=== PATIENT | female | born 1955 | race Caucasian/White ===

== ENCOUNTER 2016-09-06 12:32 | Observation (INO) | payer OTHER ==
[~2016-09-06] VITALS: Ht 162.6 cm; Wt 84.2 kg
[~2016-09-06 12:32] MED LIST: ADVIL,NUPRIN,M200 MG PO; ADVIL200 MG PO; AMRIX30 MG PO; ARTIFICIAL TEAR1510 RIGHT EYE; ASPIRIN325 MG PO; ATARAX,VISTARIL50 MG PO; BACLOFEN10 MG PO; BACLOFEN20 MG PO; BENTYL10 MG PO; BENTYL20 MG PO; BENZONATATE100 MG; BUPROPION XL300 MG PO; BUTALB-ACETAMI1 EAC2 PO; BUTALB-APAP-CA1 EACH PO; BUTALBITAL-APA1 EACH PO; BUTRANS1 EAC1 TD; CALTRATE 600 +1 EAC1 PO; CALTRATE 600+D1 EAC1 PO; CALTRATE 6001 TABLE1 PO; CALTRATE PLUS1 EACH PO; CEFDINIR300 MG PO; CENTRUM SILVER1 EAC3 PO; CENTRUM SILVER1 EAC4 PO; CHLORZOXAZONE500 MG PO; CITALOPRAM HBR20 MG PO; CLARITHROMYCIN500 MG; CLONAZEPAM0.5 MG PO; CRESTOR10 MG PO; CYCLOBENZAPRINE10 MG PO; CYMBALTA60 MG PO; DESYREL100 MG; DESYREL100 MG PO; DIAZEPAM2 MG PO; DICYCLOMINE HCL20 MG PO; DILAUDID2 MG PO; DOCUSATE SODIU100 MG PO; DURAGESIC25 MCG TD; ESOMEPRAZOLE MA40 MG PO; FENTANYL1 EAC1 TD; FENTANYL1 EAC5 TD; FEOSOL325 MG PO; FEOSOL45 MG PO; FIORICET 50-301 EACH PO; FIORICET,ESG1 TABLET PO; FIORINAL1 TABLET PO; FLEXERIL10 MG PO; HEPARIN SO5000 UNITS SC; HYDROCODON-ACE1 EAC7 PO; HYDROMORPHONE HC4 MG PO; HYDROXYZINE HCL50 MG PO; HYDROXYZINE PA100 MG PO; HYDROXYZINE PAM50 MG PO; IBUPROFEN200 M1 PO; IBUPROFEN800 MG PO; IMITREX25 MG PO; IMITREX6 MG/0.5 M SC; IMITREX6 MG/0.52 SC; IMITREX6 MG/0.53 SC; KADIAN10 MG PO; KEFLEX500 MG PO; KLONOPIN0.5 M1 PO; LEVOTHYROXINE100 MCG PO; LEVOTHYROXINE50 MCG; LEVOTHYROXINE75 MCG PO; LEXAPRO5 MG PO; LIDOCAINE700 MG TD; LIDODERM 5% P1 PATCH TD; LITE COAT ASPI325 M1 PO; LORAZEPAM2 MG PO; LOTRONEX PO; LOTRONEX0.5 MG; LOVENOX40 MG/0.4 SC; LYRICA100 MG PO; LYRICA150 MG PO; LYRICA200 MG PO; LYRICA75 MG PO; MEDROL DOSEPAK4 MG PO; MELATONIN5 M1 PO; MELOXICAM15 MG PO; MIRALAX17 GM PO; MIRALAX255 GM PO; MORPHINE SULFAT15 M1 PO; NAPROSYN500 MG PO; NEXIUM40 MG PO; NORCO 5/3251 TABLET PO; OMEGA 3 500 SO1 EACH PO; OMEGA-31000 M1 PO; ONE-A-DAY WOME1 EAC5 PO; OXYCODONE HCL5 MG PO; OXYCONTIN20 MG PO; PERCOCET 5/31 TABLET PO; POLYETHYLENE GL17 GM PO; POTASSIUM GLUCO2 MEQ PO; PREDNISONE20 MG PO; PRISTIQ50 MG PO; PROBIOTIC1 EAC1 PO; PROMETHAZINE HC25 M1 PO; QUETIAPINE FUM100 MG PO; QVAR 40 MCG IN7.3 GM; ROBITUSSIN AC,T10 ML PO; ROBITUSSIN100 MG/5 M PO; SAVELLA100 MG PO; SAVELLA50 MG PO; SENNA8.6 M1 PO; SEROQUEL100 MG PO; STOOL SOFTENER100 MG PO; SUCRALFATE1 GM PO; SULFACETAMIDE S15 ML RIGHT EYE; SUMATRIPTA6 MG/0.5 M; SUMATRIPTAN SUC50 MG PO; SYMBICORT60 INHALA1 IH; THERAGRAN1 TABLET PO; TOPAMAX100 MG PO; TOPIRAMATE100 MG PO; TOPROL XL100 MG PO; TRAZODONE HCL100 MG PO; TRAZODONE HCL50 MG PO; TUMS500 MG PO; TYLENOL EXTRA500 MG PO; VALIUM2 MG PO; VALIUM5 MG PO; VASCEPA1 GM PO; WELLBUTRIN XL150 MG PO; WELLBUTRIN XL300 MG PO; WELLBUTRIN75 MG PO; WOMEN'S ONE DA1 EACH PO; XIFAXAN550 MG PO; ZITHROMAX Z-PA250 MG PO; ZITHROMAX500 MG PO; ZOFRAN ODT4 MG PO; ZOFRAN4 MG PO
[2016-09-06 13:17] LABS: HEMATOCRIT 41.8 % (36.0-46.0); MCH 27.1 PG (29.0-34.0); MCHC 34.4 G/DL (30.0-36.0); MCV 78.7 FL (83-99); MEAN PLAT.VOLUME 9.9 uM^3 (9.5-12.4); PLATELET COUNT 245 K/uL (156-360); RBC DIS.WIDTH-CV 14.9 % (11.8-14.6); RBC DIS.WIDTH-SD 41.8 % (39-53); RED BLOOD COUNT 5.31 M/uL (3.80-5.20)
[2016-09-06 13:56] LABS: CHLORIDE 114 mEq/L (99-109); POTASSIUM 2.9 mEq/L (3.7-5.4); SODIUM 142 mEq/L (136-147)
[2016-09-06 13:58] LABS: GLUCOSE 106 mg/dL (70-99)
[2016-09-06 13:59] LABS: ANION GAP 13 MEQ/L (2-14)
[2016-09-06 14:02] LABS: GFR ESTIMATE (CALCULATED) > 59 mL/min/
[2016-09-06 14:03] LABS: UREA NITROGEN (BUN) 17 mg/dL (9-23)
[2016-09-06 17:46] LABS: INTERNAL CONTROL VALID? YES
[2016-09-06 18:00] LABS: C DIFF TOXIN NEGATIVE (NEGATIVE)
[2016-09-06 18:01] LABS: PROBE CHECK PASS; SPECIMEN PROCESSING CONTROL PASS
[2016-09-06 19:35] LABS: ADD MIUA? NO; BILIRUBIN NEGATIVE; BLOOD NEGATIVE; COLOR YELLOW ((YELLOW)); GLUCOSE (STRIP) NEGATIVE; KETONES 20; LEUKOCYTES NEGATIVE; NITRITE NEGATIVE; PROTEIN (STRIP) NEGATIVE; SPECIFIC GRAVITY 1.028 (1.000-1.030); UCUL ADDED? NO; UROBILINOGEN 0.2 MG/DL (0.2-1.0)
[2016-09-06 22:15] LABS: TOTAL BILIRUBIN 0.4 mg/dL (0.0-1.0)
[2016-09-06 22:16] LABS: ALKALINE PHOSPHATASE 64 IU/L (3-129)
[2016-09-06 22:18] LABS: DIRECT BILIRUBIN 0.1 mg/dL (0.0-0.3)
[2016-09-06 22:31] VITALS: BP 134/65
[2016-09-07] VITALS (11 sets, daily range): BP systolic 97–151; BP diastolic 56–88
[2016-09-07] MEDS ORDERED: BENTYL20 MG PO (00:27)
[2016-09-07 02:21] LABS: CHLORIDE 119 mEq/L (99-109); POTASSIUM 3.2 mEq/L (3.7-5.4); SODIUM 142 mEq/L (136-147)
[2016-09-07 02:24] LABS: GLUCOSE 87 mg/dL (70-99)
[2016-09-07 02:25] LABS: ANION GAP 6 MEQ/L (2-14)
[2016-09-07 02:27] LABS: ALKALINE PHOSPHATASE 56 IU/L (3-129); GFR ESTIMATE (CALCULATED) > 59 mL/min/
[2016-09-07 02:28] LABS: UREA NITROGEN (BUN) 11 mg/dL (9-23)
[2016-09-07 02:31] LABS: TOTAL BILIRUBIN 0.3 mg/dL (0.0-1.0)
[2016-09-07 03:04] LABS: INTERNAL CONTROL VALID? YES
[2016-09-07 08:01] LABS: HEMATOCRIT 34.2 % (36.0-46.0); MCHC 33.9 G/DL (30.0-36.0); MCV 82.4 FL (83-99); MEAN PLAT.VOLUME 9.5 uM^3 (9.5-12.4); PLATELET COUNT 204 K/uL (156-360); RBC DIS.WIDTH-CV 14.9 % (11.8-14.6); RBC DIS.WIDTH-SD 44.7 % (39-53)
[2016-09-07 08:07] LABS: RED BLOOD COUNT 4.15 M/uL (3.80-5.20)
[2016-09-07 08:08] LABS: ALKALINE PHOSPHATASE 49 IU/L (3-129); ANION GAP 10 MEQ/L (2-14); CHLORIDE 116 MEQ/L (99-109); GFR ESTIMATE (CALCULATED) > 59 mL/min/; GLUCOSE 88 mg/dL (70-99); POTASSIUM 3.3 MEQ/L (3.7-5.4); SAMPLE HEMOLYSIS CHECK 0; SAMPLE ICTERIC CHECK 0; SAMPLE LIPEMIA CHECK 0; SODIUM 143 MEQ/L (136-147); TOTAL BILIRUBIN 0.3 MG/DL (0.0-1.0); UREA NITROGEN (BUN) 10 mg/dL (9-23)
[2016-09-07 22:34] LABS: INFLUENZA A VIRAL ANTIGEN POSITIVE; INFLUENZA B VIRAL ANTIGEN NEGATIVE
[2016-09-08 05:24] VITALS: BP 117/57
[2016-09-08 07:46] VITALS: BP 113/57
[2016-09-08 08:33] LABS: HEMATOCRIT 34.8 % (36.0-46.0); MCH 27.4 PG (29.0-34.0); MCHC 33.3 G/DL (30.0-36.0); MCV 82.3 FL (83-99); MEAN PLAT.VOLUME 9.4 uM^3 (9.5-12.4); PLATELET COUNT 201 K/uL (156-360); RED BLOOD COUNT 4.23 M/uL (3.80-5.20); WHITE BLOOD COUNT 2.9 K/uL (4.1-10.2)
[2016-09-08 08:43] LABS: ANION GAP 8 MEQ/L (2-14); CHLORIDE 115 MEQ/L (99-109); GFR ESTIMATE (CALCULATED) > 59 mL/min/; GLUCOSE 98 mg/dL (70-99); POTASSIUM 3.3 MEQ/L (3.7-5.4); SAMPLE HEMOLYSIS CHECK 0; SAMPLE ICTERIC CHECK 0; SAMPLE LIPEMIA CHECK 0; SODIUM 143 MEQ/L (136-147); UREA NITROGEN (BUN) 7 mg/dL (9-23)
[2016-09-08 16:17] VITALS: BP 108/60
[2016-09-08 20:00] VITALS: BP 124/62
[2016-09-09 08:18] VITALS: BP 103/52
[2016-09-09 09:05] LABS: HEMATOCRIT 32.2 % (36.0-46.0); MCH 27.8 PG (29.0-34.0); MCHC 34.5 G/DL (30.0-36.0); MCV 80.5 FL (83-99); MEAN PLAT.VOLUME 9.1 uM^3 (9.5-12.4); PLATELET COUNT 221 K/uL (156-360); RBC DIS.WIDTH-CV 14.9 % (11.8-14.6); WHITE BLOOD COUNT 3.2 K/uL (4.1-10.2)
[2016-09-09 09:29] LABS: ANION GAP 10 MEQ/L (2-14); CHLORIDE 115 MEQ/L (99-109); GFR ESTIMATE (CALCULATED) > 59 mL/min/; GLUCOSE 88 mg/dL (70-99); MAGNESIUM 1.9 mg/dl (1.3-2.7); POTASSIUM 3.4 MEQ/L (3.7-5.4); SAMPLE HEMOLYSIS CHECK 0; SAMPLE ICTERIC CHECK 0; SAMPLE LIPEMIA CHECK 0; SODIUM 144 MEQ/L (136-147); UREA NITROGEN (BUN) 6 mg/dL (9-23)
[2016-09-09 12:17] LABS: ALKALINE PHOSPHATASE 63 IU/L (3-129); AMYLASE 22 IU/L (1-118); DIRECT BILIRUBIN 0.1 mg/dL (0.0-0.3); LIPASE 12 U/L (1.0-51.0)
[2016-09-09 12:19] LABS: TOTAL BILIRUBIN 0.4 MG/DL (0.0-1.0)
[2016-09-09 12:42] VITALS: BP 121/57
[2016-09-09 15:44] LABS: ERTH.SED.RATE 19 MM/HR (0-30)
[2016-09-09 16:30] VITALS: BP 116/56
[2016-09-09 20:02] VITALS: BP 120/60
[2016-09-09 23:36] VITALS: BP 94/52
[2016-09-10] VITALS (7 sets, daily range): BP systolic 106–148; BP diastolic 54–82
[2016-09-10 07:05] LABS: HEMATOCRIT 34.4 % (36.0-46.0); MCH 27.1 PG (29.0-34.0); MCHC 33.7 G/DL (30.0-36.0); MCV 80.4 FL (83-99); MEAN PLAT.VOLUME 9.5 uM^3 (9.5-12.4); PLATELET COUNT 248 K/uL (156-360); RBC DIS.WIDTH-CV 14.7 % (11.8-14.6); RED BLOOD COUNT 4.28 M/uL (3.80-5.20); WHITE BLOOD COUNT 3.7 K/uL (4.1-10.2)
[2016-09-10 07:56] LABS: EOSINOPHIL (%) 0 % (0-5); HEMATOLOGY COMMENT 1 SMEAR COMPATIBLE; IMMATURE GRANULOCYTE (%) 0.8 % (0.0-0.7); LYMPHOCYTE COUNT 2.2 K/uL (1.0-2.8); MONOCYTE (%) 7.9 % (3-12); MONOCYTE COUNT 0.3 K/uL (0-0.8); NEUTROPHIL (%) 30.9 % (45-76); NEUTROPHIL COUNT 1.1 K/uL (1.8-6.4); USER ID STC
[2016-09-10 08:04] LABS: ALKALINE PHOSPHATASE 65 IU/L (3-129); ANION GAP 10 MEQ/L (2-14); CHLORIDE 114 MEQ/L (99-109); GFR ESTIMATE (CALCULATED) > 59 mL/min/; GLUCOSE 116 mg/dL (70-99); POTASSIUM 3.5 MEQ/L (3.7-5.4); SAMPLE HEMOLYSIS CHECK 0; SAMPLE ICTERIC CHECK 0; SAMPLE LIPEMIA CHECK 0; SODIUM 142 MEQ/L (136-147); TOTAL BILIRUBIN 0.5 MG/DL (0.0-1.0); UREA NITROGEN (BUN) 6 mg/dL (9-23)
[2016-09-11] VITALS: BP 92/55
[2016-09-11 05:59] VITALS: BP 120/55
[2016-09-11 08:20] VITALS: BP 100/62
[2016-09-11] MEDS ORDERED: METRONIDAZOLE500 MG PO (12:18)
[2016-09-11 15:45] VITALS: BP 110/53
[2016-09-11 20:00] VITALS: BP 104/60
[2016-09-12] VITALS: BP 104/60
[2016-09-12 00:12] VITALS: BP 102/54
[2016-09-12 04:08] VITALS: BP 103/59
[2016-09-12 09:30] VITALS: BP 101/50
[2016-09-12 12:09] VITALS: BP 110/76
== END 2016-09-12 13:34 | disposition home or self-care (01) ==
LOC: EME 12:32 → EDOF 20:47 → 5WEST 20:47
PROVIDERS: Emergency Medicine; Hospitalist; Internal Medicine; Physician Assistant
DX: K52.9 Noninfective gastroenteritis and colitis, unspecified (principal); E87.6 Hypokalemia; J10.2 Influenza due to other identified influenza virus with gastrointestinal manifestations; J10.1 Influenza due to other identified influenza virus with other respiratory manifestations; E78.5 Hyperlipidemia, unspecified; K58.9 Irritable bowel syndrome, unspecified; R10.9 Unspecified abdominal pain; G89.29 Other chronic pain; F31.9 Bipolar disorder, unspecified; M79.7 Fibromyalgia; G47.33 Obstructive sleep apnea (adult) (pediatric); Z91.19 Patient's noncompliance with other medical treatment and regimen; E66.9 Obesity, unspecified; Z88.1 Allergy status to other antibiotic agents; Z88.8 Allergy status to other drugs, medicaments and biological substances; Z91.018 Allergy to other foods; Z82.49 Family history of ischemic heart disease and other diseases of the circulatory system
CPT/HCPCS: 71010; 74020; 74177; 76705; 80048; 80053; 80076; 81003; 82150; 82272; 83605; 83630; 83690; 83735; 85025; 85027; 85651; 87177; 87329; 87493; 87502; 87506; 94799; 99281; 99285; G0378; J0500; J0610; J1170; J1644; J1885; J2270; J2405; J2543; J2765; J3030; J7030; J7050; Q0177; S0028

== ENCOUNTER 2016-11-29 13:13 | Observation (INO) | payer OTHER ==
[~2016-11-29] VITALS: Ht 162.6 cm; Wt 83.6 kg
[~2016-11-29 13:13] MED LIST changes: +METRONIDAZOLE500 MG PO
[2016-11-29 14:37] LABS: HEMATOCRIT 43.2 % (36.0-46.0); MCH 28.2 PG (29.0-34.0); MCHC 33.6 G/DL (30.0-36.0); MEAN PLAT.VOLUME 8.8 uM^3 (9.5-12.4); PLATELET COUNT 303 K/uL (156-360); RBC DIS.WIDTH-CV 13.6 % (11.8-14.6); RED BLOOD COUNT 5.14 M/uL (3.80-5.20); WHITE BLOOD COUNT 5.1 K/uL (4.1-10.2)
[2016-11-29 14:49] LABS: CHLORIDE 112 mEq/L (99-109); POTASSIUM 3.9 mEq/L (3.7-5.4); SODIUM 142 mEq/L (136-147)
[2016-11-29 14:51] LABS: GLUCOSE 114 mg/dL (70-99)
[2016-11-29 14:55] LABS: ALKALINE PHOSPHATASE 56 IU/L (3-129); ANION GAP 10 MEQ/L (2-14); GFR ESTIMATE (CALCULATED) > 59 mL/min/; TOTAL BILIRUBIN 0.4 mg/dL (0.0-1.0)
[2016-11-29 14:56] LABS: UREA NITROGEN (BUN) 13 mg/dL (9-23)
[2016-11-29 14:57] LABS: TROP-I INTERPRETATION NEGATIVE; TROPONIN-I < 0.01 ng/mL (0.0-0.30)
[2016-11-29 14:58] LABS: LIPASE 9 U/L (1.0-51.0)
[2016-11-29] MEDS ORDERED: ALPRAZOLAM0.25 M2 PO (14:58)
[2016-11-29] MEDS ORDERED: [UNRECOGNIZED DRUG - OTHER] PO (15:01)
[2016-11-29 15:04] LABS: D-DIMER ELISA < 0.15 mg/L FEU (< 0.57)
[2016-11-29] MEDS ORDERED: EZ NITE SLEEP25 MG PO (18:14)
[2016-11-29] MEDS ORDERED: CYCLOBENZAPRINE10 MG PO (18:16)
[2016-11-29 19:03] LABS: ADD MIUA? NO; BILIRUBIN NEGATIVE; BLOOD NEGATIVE; COLOR YELLOW ((YELLOW)); GLUCOSE (STRIP) NEGATIVE; KETONES NEGATIVE; LEUKOCYTES NEGATIVE; NITRITE NEGATIVE; PROTEIN (STRIP) NEGATIVE; SPECIFIC GRAVITY 1.009 (1.000-1.030); UROBILINOGEN 0.2 MG/DL (0.2-1.0)
[2016-11-29 19:39] VITALS: BP 118/67
[2016-11-29 19:51] LABS: C DIFF TOXIN NEGATIVE (NEGATIVE)
[2016-11-29 19:52] LABS: PROBE CHECK PASS; SPECIMEN PROCESSING CONTROL PASS
[2016-11-29 21:43] LABS: TROP-I INTERPRETATION NEGATIVE; TROPONIN-I 0.01 ng/mL (0.0-0.30)
[2016-11-30] VITALS (7 sets, daily range): BP systolic 94–117; BP diastolic 52–59
[2016-11-30 03:21] LABS: HEMATOCRIT 36.3 % (36.0-46.0); MCH 28.1 PG (29.0-34.0); MCHC 32.8 G/DL (30.0-36.0); MCV 85.8 FL (83-99); MEAN PLAT.VOLUME 8.9 uM^3 (9.5-12.4); PLATELET COUNT 261 K/uL (156-360); RBC DIS.WIDTH-CV 13.9 % (11.8-14.6); RBC DIS.WIDTH-SD 43.4 % (39-53); RED BLOOD COUNT 4.23 M/uL (3.80-5.20); WHITE BLOOD COUNT 4.8 K/uL (4.1-10.2)
[2016-11-30 03:28] LABS: POTASSIUM 3.6 mEq/L (3.7-5.4)
[2016-11-30 03:38] LABS: TROP-I INTERPRETATION NEGATIVE; TROPONIN-I < 0.01 ng/mL (0.0-0.30)
[2016-11-30 03:55] LABS: GLUCOSE 132 mg/dL (70-99)
[2016-11-30 03:57] LABS: ANION GAP 9 MEQ/L (2-14)
[2016-11-30 03:59] LABS: GFR ESTIMATE (CALCULATED) > 59 mL/min/
[2016-11-30 04:00] LABS: UREA NITROGEN (BUN) 14 mg/dL (9-23)
[2016-11-30 04:03] LABS: CHLORIDE 116 mEq/L (99-109); SODIUM 146 mEq/L (136-147)
== END 2016-11-30 18:33 | disposition home or self-care (01) ==
LOC: EME 13:13 → EDOF 18:25 → 5WEST 19:25
PROVIDERS: Hospitalist; Nurse Practitioner Family
DX: R07.89 Other chest pain (principal); E87.6 Hypokalemia; G47.33 Obstructive sleep apnea (adult) (pediatric); K58.0 Irritable bowel syndrome with diarrhea; G89.4 Chronic pain syndrome; M79.7 Fibromyalgia; K21.9 Gastro-esophageal reflux disease without esophagitis; G43.909 Migraine, unspecified, not intractable, without status migrainosus; E03.9 Hypothyroidism, unspecified; M81.0 Age-related osteoporosis without current pathological fracture; F31.9 Bipolar disorder, unspecified
CPT/HCPCS: 71020; 74020; 80048; 80053; 81003; 83605; 83690; 84484; 85027; 85379; 87493; 87506; 93005; 99281; 99285; G0378; J1644; J2270; J2405; J7030; Q0177

== ENCOUNTER 2017-01-02 18:10 | Emergency (ER) | payer OTHER ==
[~2017-01-02] VITALS: Ht 162.6 cm; Wt 91.4 kg
[~2017-01-02 18:10] MED LIST changes: +ALPRAZOLAM0.25 M2 PO; +EZ NITE SLEEP25 MG PO; +[UNRECOGNIZED DRUG - OTHER] PO
[2017-01-02 19:32] LABS: HEMATOCRIT 37.5 % (36.0-46.0); MCH 28.5 PG (29.0-34.0); MCHC 33.9 G/DL (30.0-36.0); MCV 84.1 FL (83-99); MEAN PLAT.VOLUME 9.2 uM^3 (9.5-12.4); PLATELET COUNT 281 K/uL (156-360); RBC DIS.WIDTH-CV 13.2 % (11.8-14.6); RBC DIS.WIDTH-SD 39.8 % (39-53); RED BLOOD COUNT 4.46 M/uL (3.80-5.20); WHITE BLOOD COUNT 8.3 K/uL (4.1-10.2)
[2017-01-02 19:33] LABS: ADD MIUA? NO; BILIRUBIN NEGATIVE; BLOOD NEGATIVE; COLOR STRAW ((YELLOW)); GLUCOSE (STRIP) NEGATIVE; KETONES NEGATIVE; LEUKOCYTES NEGATIVE; NITRITE NEGATIVE; PROTEIN (STRIP) NEGATIVE; SPECIFIC GRAVITY 1.005 (1.000-1.030); UCUL ADDED? NO; UROBILINOGEN 0.2 MG/DL (0.2-1.0)
[2017-01-02 19:45] LABS: CHLORIDE 107 mEq/L (99-109); POTASSIUM 3.6 mEq/L (3.7-5.4); SODIUM 139 mEq/L (136-147)
[2017-01-02 19:47] LABS: GLUCOSE 94 mg/dL (70-99)
[2017-01-02 19:48] LABS: ANION GAP 10 MEQ/L (2-14)
[2017-01-02 19:49] LABS: TOTAL BILIRUBIN 0.3 mg/dL (0.0-1.0)
[2017-01-02 19:51] LABS: ALKALINE PHOSPHATASE 54 IU/L (3-129); GFR ESTIMATE (CALCULATED) > 59 mL/min/
[2017-01-02 19:52] LABS: UREA NITROGEN (BUN) 16 mg/dL (9-23)
[2017-01-02 21:56] VITALS: BP 152/67
== END 2017-01-02 22:05 | disposition home or self-care (01) ==
LOC: EME 18:10
PROVIDERS: Physician Assistant
DX: R10.31 Right lower quadrant pain (principal); K59.00 Constipation, unspecified; E03.9 Hypothyroidism, unspecified; Z90.49 Acquired absence of other specified parts of digestive tract; G89.29 Other chronic pain; M54.5 Low back pain; Z79.891 Long term (current) use of opiate analgesic; Z90.710 Acquired absence of both cervix and uterus; R63.5 Abnormal weight gain; Z68.34 Body mass index [BMI] 34.0-34.9, adult; R60.0 Localized edema
CPT/HCPCS: 74177; 80053; 81003; 83880; 84443; 85027; 99281; 99285; J1885; J2270; J3010; J7030

== ENCOUNTER 2017-04-06 23:36 | Emergency (ER) | payer OTHER ==
[~2017-04-06] VITALS: Ht 162.6 cm; Wt 86.0 kg
[2017-04-07] MEDS ORDERED: PERCOCET 5/31 TABLET PO (02:17)
[2017-04-07 02:41] VITALS: BP 136/70
== END 2017-04-07 02:43 | disposition home or self-care (01) ==
LOC: EME 23:36
PROC: 2W3CX1Z Immobilization of Right Lower Arm using Splint (ICD-10-PCS; principal; 2017-04-06)
DX: S80.01XA Contusion of right knee, initial encounter (principal); S86.911A Strain of unspecified muscle(s) and tendon(s) at lower leg level, right leg, initial encounter; S80.211A Abrasion, right knee, initial encounter; S63.501A Unspecified sprain of right wrist, initial encounter; W18.09XA Striking against other object with subsequent fall, initial encounter; Y93.01 Activity, walking, marching and hiking; R11.0 Nausea
CPT/HCPCS: 73110; 73130; 73590; 99281; 99284; J1200; J2270; J2405; J3010

== ENCOUNTER 2017-07-23 00:47 | Emergency (ER) | payer OTHER ==
[~2017-07-23] VITALS: Ht 162.6 cm; Wt 86.3 kg
[2017-07-23] MEDS ORDERED: SAPHRIS5 MG SL (00:52)
[2017-07-23] MEDS ORDERED: IMITREX6 MG/0.53 SC (00:52)
[2017-07-23] MEDS ORDERED: PRISTIQ50 MG PO (00:52)
[2017-07-23] MEDS ORDERED: SAPHRIS10 MG SL (00:53)
[2017-07-23] MEDS ORDERED: TOPAMAX100 MG PO ×2 (00:53)
[2017-07-23] MEDS ORDERED: CRESTOR20 MG PO (00:54)
[2017-07-23] MEDS ORDERED: SYNTHROID125 MCG PO (00:54)
[2017-07-23] MEDS ORDERED: ATARAX,VISTARIL50 MG PO (00:54)
[2017-07-23] MEDS ORDERED: XANAX0.25 MG PO (00:54)
[2017-07-23] MEDS ORDERED: DURAGESIC25 MCG TD (00:55)
[2017-07-23] MEDS ORDERED: NEXIUM40 MG PO (00:55)
[2017-07-23] MEDS ORDERED: BENTYL20 MG PO (00:55)
[2017-07-23] MEDS ORDERED: FLEXERIL10 MG PO (01:03)
[2017-07-23] MEDS ORDERED: DICLOFENAC SOD100 G1 TP (01:03)
[2017-07-23] MEDS ORDERED: POTASSIUM GLUCONATE PO (01:04)
[2017-07-23] MEDS ORDERED: LIDODERM 5% P1 PATCH TD (01:04)
[2017-07-23] MEDS ORDERED: CENTRUM SILVER1 EAC4 PO (01:04)
[2017-07-23] MEDS ORDERED: LYRICA150 MG PO (01:04)
[2017-07-23] MEDS ORDERED: CALTRATE 600+D1 EAC1 PO (01:05)
[2017-07-23] MEDS ORDERED: BENADRYL25 MG PO (01:05)
[2017-07-23] MEDS ORDERED: STOOL SOFTENER100 MG PO (01:05)
[2017-07-23] MEDS ORDERED: MELATONIN10 M4 SL (01:05)
[2017-07-23 01:51] LABS: HEMATOCRIT 42.4 % (36.0-46.0); HEMOGLOBIN 13.4 G/DL (11.9-15.5); MCH 26.4 PG (29.0-34.0); MCHC 31.6 G/DL (30.0-36.0); MCV 83.5 FL (83-99); PLATELET COUNT 289 K/uL (156-360); RBC DIS.WIDTH-SD 45.4 % (39-53); RED BLOOD COUNT 5.08 M/uL (3.80-5.20); WHITE BLOOD COUNT 8.7 K/uL (4.1-10.2)
[2017-07-23 01:58] LABS: ALBUMIN 3.8 g/dL (3.2-4.8)
[2017-07-23 01:59] LABS: CHLORIDE 113 mEq/L (99-109); POTASSIUM 3.1 mEq/L (3.7-5.4); SODIUM 141 mEq/L (136-147)
[2017-07-23 02:01] LABS: GLUCOSE 133 mg/dL (70-99); TOTAL PROTEIN 6.9 g/dL (6.4-8.3)
[2017-07-23 02:03] LABS: TOTAL BILIRUBIN 0.6 mg/dL (0.0-1.0)
[2017-07-23 02:04] LABS: ALKALINE PHOSPHATASE 79 IU/L (3-129)
[2017-07-23 02:05] LABS: CREATININE 0.7 mg/dL (0.6-1.3); GFR ESTIMATE (CALCULATED) > 59 mL/min/
[2017-07-23 02:06] LABS: AST (GOT) 16 IU/L (2-34); UREA NITROGEN (BUN) 28 mg/dL (9-23)
[2017-07-23 02:08] LABS: ALT (GPT) 24 IU/L (3-49); LIPASE 6 U/L (1.0-51.0)
[2017-07-23] MEDS ORDERED: REGLAN10 MG PO (05:35)
[2017-07-23 06:10] VITALS: BP 129/80
[2017-07-24] MEDS ORDERED: ZOFRAN4 MG PO (13:50)
== END 2017-07-23 06:15 | disposition home or self-care (01) ==
LOC: EME 00:47
PROVIDERS: Emergency Medicine
DX: K52.9 Noninfective gastroenteritis and colitis, unspecified (principal); K21.9 Gastro-esophageal reflux disease without esophagitis; M79.7 Fibromyalgia; E78.5 Hyperlipidemia, unspecified; F41.9 Anxiety disorder, unspecified; M81.0 Age-related osteoporosis without current pathological fracture; Z90.49 Acquired absence of other specified parts of digestive tract
CPT/HCPCS: 74020; 74177; 80053; 83690; 85027; 99281; 99285; J2270; J2405; J2765; J7030

== ENCOUNTER 2017-07-24 10:16 | Emergency (ER) | payer OTHER ==
[~2017-07-24] VITALS: Ht 162.6 cm; Wt 88.1 kg
[~2017-07-24 10:16] MED LIST changes: +BENADRYL25 MG PO; +CRESTOR20 MG PO; +DICLOFENAC SOD100 G1 TP; +MELATONIN10 M4 SL; +POTASSIUM GLUCONATE PO; +REGLAN10 MG PO; +SAPHRIS10 MG SL; +SAPHRIS5 MG SL; +SYNTHROID125 MCG PO; +XANAX0.25 MG PO
[2017-07-24 10:56] LABS: HEMATOCRIT 40.1 % (36.0-46.0); HEMOGLOBIN 13.1 G/DL (11.9-15.5); MCH 26.4 PG (29.0-34.0); MCHC 32.7 G/DL (30.0-36.0); MCV 80.7 FL (83-99); PLATELET COUNT 316 K/uL (156-360); RBC DIS.WIDTH-CV 14.7 % (11.8-14.6); RBC DIS.WIDTH-SD 43.2 % (39-53); RED BLOOD COUNT 4.97 M/uL (3.80-5.20); WHITE BLOOD COUNT 6.4 K/uL (4.1-10.2)
[2017-07-24 11:10] LABS: ALBUMIN 3.9 g/dL (3.2-4.8); CHLORIDE 109 mEq/L (99-109); POTASSIUM 3.2 mEq/L (3.7-5.4); SODIUM 138 mEq/L (136-147)
[2017-07-24 11:12] LABS: GLUCOSE 121 mg/dL (70-99)
[2017-07-24 11:13] LABS: TOTAL PROTEIN 6.9 g/dL (6.4-8.3)
[2017-07-24 11:15] LABS: TOTAL BILIRUBIN 0.3 mg/dL (0.0-1.0)
[2017-07-24 11:16] LABS: ALKALINE PHOSPHATASE 127 IU/L (3-129)
[2017-07-24 11:17] LABS: CREATININE 0.8 mg/dL (0.6-1.3); GFR ESTIMATE (CALCULATED) > 59 mL/min/; UREA NITROGEN (BUN) 25 mg/dL (9-23)
[2017-07-24 11:18] LABS: AST (GOT) 42 IU/L (2-34)
[2017-07-24 11:19] LABS: ALT (GPT) 95 IU/L (3-49)
[2017-07-24 11:31] LABS: LIPASE 11 U/L (1.0-51.0)
[2017-07-24] MEDS ORDERED: ZOFRAN4 MG PO (13:50)
[2017-07-24 16:08] VITALS: BP 135/75
== END 2017-07-24 16:11 | disposition home or self-care (01) ==
LOC: EME 10:16
DX: R11.2 Nausea with vomiting, unspecified (principal); K58.9 Irritable bowel syndrome, unspecified; E78.5 Hyperlipidemia, unspecified; K21.9 Gastro-esophageal reflux disease without esophagitis; M79.7 Fibromyalgia; M81.0 Age-related osteoporosis without current pathological fracture; F41.9 Anxiety disorder, unspecified; Z88.8 Allergy status to other drugs, medicaments and biological substances
CPT/HCPCS: 80053; 81003; 83690; 85027; 99281; 99285; C1753; J1630

== ENCOUNTER → 2017-08-11 | Outpatient (CLI) | payer OTHER ==
[~2017-08-11] VITALS: Ht 162.6 cm; Wt 94.0 kg
[~2017-08-11] MED LIST changes: +MELATONIN10 M1 PO; +PROAIR HFA8.5 GM IH
[2017-08-11 13:45] VITALS: BP 156/74
== END | disposition home or self-care (01) ==
LOC: IVINF 08-02 07:00
DX: M81.0 Age-related osteoporosis without current pathological fracture (principal); Z87.19 Personal history of other diseases of the digestive system
CPT/HCPCS: 96365; J3489

== ENCOUNTER → 2017-09-15 | Outpatient (CLI) | payer OTHER | END | disposition home or self-care (01) | LOC: CDC 14:30 | DX: Z01.810 Encounter for preprocedural cardiovascular examination (principal); G56.01 Carpal tunnel syndrome, right upper limb; M25.531 Pain in right wrist; R94.31 Abnormal electrocardiogram [ECG] [EKG] | CPT/HCPCS: 93000 ==

== ENCOUNTER 2017-11-02 13:55 | Emergency (ER) | payer OTHER ==
[~2017-11-02] VITALS: Ht 170.2 cm; Wt 90.0 kg
[2017-11-02] MEDS ORDERED: FIORICET 50-301 EAC1 PO (16:50)
[2017-11-02] MEDS ORDERED: PHENADOZ25 MG PR (16:50)
[2017-11-02 18:58] VITALS: BP 106/64
== END 2017-11-02 19:05 | disposition home or self-care (01) ==
LOC: EME 13:55
DX: G43.909 Migraine, unspecified, not intractable, without status migrainosus (principal); G89.29 Other chronic pain; E66.9 Obesity, unspecified; M54.12 Radiculopathy, cervical region; E78.5 Hyperlipidemia, unspecified; K21.9 Gastro-esophageal reflux disease without esophagitis; K72.90 Hepatic failure, unspecified without coma; M79.7 Fibromyalgia; K58.9 Irritable bowel syndrome, unspecified; M81.0 Age-related osteoporosis without current pathological fracture; F41.9 Anxiety disorder, unspecified; Z90.49 Acquired absence of other specified parts of digestive tract; Z90.710 Acquired absence of both cervix and uterus; Z88.1 Allergy status to other antibiotic agents; Z91.018 Allergy to other foods; Z88.8 Allergy status to other drugs, medicaments and biological substances
CPT/HCPCS: 99281; 99285; J1100; J1200; J1885; J2550; J2765; J7030; J7050